=== PATIENT | male | born 1985 | race Caucasian/White ===

== ENCOUNTER 2022-06-17 07:00 | Outpatient (NON) | payer OTHER, SELFPAY | END 2022-06-17 07:01 | disposition home or self-care (01) | PROVIDERS: PCP Internal Medicine Gastroenterology; Visit Provider Internal Medicine Gastroenterology | DX: Z86.010 Personal history of colon polyps (principal) | CPT/HCPCS: 88305 ==

== ENCOUNTER 2022-06-17 08:10 | Day surgery (SDC) | payer OTHER, SELFPAY ==
[2022-06-10 15:10] VITALS: BMI 30.8
[2022-06-17 08:43] VITALS: BP 128/87; PULSE 98; RESP 18; TEMP 37.1; O2SAT 99; BMI 32.1
[2022-06-17] MEDS: LACTATED RINGERS 1,000 ML 150 ML IV CONT (08:50)
--- NOTE | 2022-06-17 09:03 | WPDANESEPPF ---
Anes - Initial Pre Proc Eval Procedure: Operation Date: 06/17/22 10:00 Proposed Procedures p Screening Colonoscopy - Jani Ramirez MD Date/Time: 06/17/22 09:03 Surgeon: Jani Ramirez MD Pre Op Diagnosis: History of Polyps Patient Data Age: 37 Gender: M Height: 1.88 m Weight: 113.4 kg Last Vital Signs Temp 37.1 C 06/17/22 08:43 Pulse 98 06/17/22 08:43 Resp 18 06/17/22 08:43 BP 128/87 06/17/22 08:43 Pulse Ox 99 06/17/22 08:43 O2 Del Method Room Air 06/17/22 08:43 Allergies Allergy/AdvReac Type Severity Reaction Status Date / Time Penicillins Allergy Rash Verified 06/17/22 08:38 Home Medications Medication Instructions Recorded Confirmed Type sodium,potassium,mag sulfates 17.5 See Rx Instructions PO .COMPLEX 05/21/22 06/10/22 Rx gram-3.13 gram-1.6 gram oral soln #354 mL (Suprep Bowel Prep Kit) M.V.I. Adult 1 tab-cap PO DAILY 06/10/22 06/10/22 History Zyrtec 20 mg PO DAILY 06/10/22 06/10/22 History albuterol 2 puff inhalation PRN 06/10/22 06/10/22 History fluticasone propionate 44 44 mcg inhalation BID 06/10/22 06/10/22 History mcg/actuation HFA aerosol inhaler (Flovent HFA) irbesartan 150 150 tablet PO DAILY 06/10/22 06/10/22 History mg-hydrochlorothiazide 12.5 mg tablet Patient hx anesthesia problems: none Family hx anesthesia problems: none Results Review: All pre-operative results and documents have been reviewed as part of the pre-operative evaluation. [facility] Past Medical History Medical History HTN (hypertension) Obesity Smoker Surgical History Surgical History (Updated 06/17/22 @ 09:06 by Jeffrey Cardona MD) H/O colonoscopy Social History Social History Smoking packs per day: 1 Smoking cigarettes per day: 20.0 Years smoked: 20 Smoking pack-years: 20.00 Smoking status: Current every day smoker Alcohol intake: current Alcohol use details: 3-5 drinks per day Living arrangements: with family Timbo Kaufman Final PreProcedure Day of Procedure 06/17/22 09:03 Patient weight: obese Heart: regular rate and rhythm Lungs: clear to auscultation Airway: Mallampati scale class II Neurological: alert and oriented Last oral intake: >/= 8 hours ASA classification: III Emergent: no Anesthetic plan: proceed Anesthesia type and monitoring: general GIVS and standard monitoring Results Review: All pre-operative results and documents have been reviewed as part of the pre-operative evaluation. Informed Consent: The patient's anesthetic plan and its attendant risks and benefits were discussed with the patient/family/POA. Questions were solicited and answers provided to the satisfaction of the patient/family/POA.
--- NOTE | 2022-06-17 09:13 | PM.HPGS ---
History of Present Illness History of Present Illness Consent: Risks, benefits, and alternatives have been discussed and questions answered. Patient agrees to proceed with procedure. Chief complaint: History of Polyps Narrative: Terry Luis is a 37 year old male Presents for screening colonoscopy. Patient has a history of colon polyps identified by previous colonoscopy in 2018. Patient currently reports that he has bright red blood per rectum that occurs intermittently. Sometimes rather heavily. This been going on for several years. Patient denies abdominal pain. He reports that his bowel habits or fairly normal. He family history is noncontributory. Review of Systems Review of Systems: Review of systems noncontributory. [facility] Past Medical History Medical History HTN (hypertension) Obesity Smoker Surgical History Surgical History (Updated 06/17/22 @ 09:06 by Jeffrey Cardona MD) H/O colonoscopy Social History Social History Smoking packs per day: 1 Smoking cigarettes per day: 20.0 Years smoked: 20 Smoking pack-years: 20.00 Smoking status: Current every day smoker Alcohol intake: current Alcohol use details: 3-5 drinks per day Living arrangements: with family Meds Home Medications and Allergies Home Medications Medication Instructions Recorded Confirmed Type sodium,potassium,mag sulfates 17.5 See Rx Instructions PO .COMPLEX 05/21/22 06/10/22 Rx gram-3.13 gram-1.6 gram oral soln #354 mL (Suprep Bowel Prep Kit) M.V.I. Adult 1 tab-cap PO DAILY 06/10/22 06/10/22 History Zyrtec 20 mg PO DAILY 06/10/22 06/10/22 History albuterol 2 puff inhalation PRN 06/10/22 06/10/22 History fluticasone propionate 44 44 mcg inhalation BID 06/10/22 06/10/22 History mcg/actuation HFA aerosol inhaler (Flovent HFA) irbesartan 150 150 tablet PO DAILY 06/10/22 06/10/22 History mg-hydrochlorothiazide 12.5 mg tablet Allergies Allergy/AdvReac Type Severity Reaction Status Date / Time Penicillins Allergy Rash Verified 06/17/22 08:38 Vital Signs Vital Signs - 24 hr 06/17/22 08:43 Temperature 98.7 F Pulse Rate 98 Respiratory Rate 18 Blood Pressure 128/87 Pulse Oximetry 99 Oxygen Delivery Room Air Exam Narrative: Physical exam reveals patient be alert. Vital signs stable. HEENT exam is unremarkable. Patient is anicteric. Lungs are clear to auscultation and percussion. Heart is without murmur or extra sounds. Abdomen bowel sounds are present soft nontender with no organomegaly. Digital external rectal exam is normal. Assessment and Plan Assessment and plan (1) History of colon polyps: Code(s): Z86.010 - Personal history of colonic polyps Status: Acute Assessment and Plan: Patient has a history of colon polyps removed from the colon 2017. Patient should presents today for screening colonoscopy. Further recommendations may be given after endoscopy. (2) Rectal bleeding: Code(s): K62.5 - Hemorrhage of anus and rectum Status: Acute Assessment and Plan: Patient notes intermittent bright red blood per rectum. plan for this to be evaluated time colonoscopy. High fiber supplementation may be beneficial. Further recommendations may be given after endoscopy.
[2022-06-17 10:36] VITALS: BP 128/74; PULSE 98; RESP 16; O2SAT 100
[2022-06-17 10:46] VITALS: BP 128/74; PULSE 103; RESP 16; O2SAT 100
[2022-06-17 10:56] VITALS: BP 126/81; PULSE 94; RESP 16; O2SAT 99
--- NOTE | 2022-06-17 10:58 | WPDANESPN ---
Anes - Prog Note Post-Op Date/Time: 06/17/22 10:58 Cardiovascular status: normal Respiratory status: normal Airway patency: baseline Mental status: baseline Post-Op hydration status: normal Vital Signs: Last Vital Signs Temp 37.1 C 06/17/22 08:43 Pulse 103 H 06/17/22 10:46 Resp 16 06/17/22 10:46 BP 128/74 06/17/22 10:46 Pulse Ox 100 06/17/22 10:46 O2 Del Method Room Air 06/17/22 10:46 Pain Score (VAS): 0/10 I/O: Intake & Output 06/16/22 06/17/22 06/17/22 23:59 07:59 15:59 Intake Total 500 Balance 500 Patient Feedback: Patient satisfied with anesthetic care.
--- NOTE | 2022-06-17 11:15 | SUR.PHASEII ---
PT AWAKE AND ALERT. DRESSED. DRINKING SODA. DENIES PAIN. WAITING FOR RIDE. MESSAGE WAS LEFT FOR SPOUSE, NO ANSWER.
--- NOTE | 2022-06-17 11:22 | SUR.PHASEII ---
CALLED SPOUSE AGAIN, SHE ANSWERED THE PHONE THIS TIME. STATES SHE WILL BE HERE IN 25 MINUTES. PT NOTIFIED.
--- NOTE | 2022-06-17 11:33 | SUR.PHASEII ---
PT DRESSED AND SITTING ON STRETCHER. SNACKING. DENIES PAIN. AWAKE AND ALERT. WAITING FOR RIDE.
== END 2022-06-17 12:01 | disposition home or self-care (01) ==
PROVIDERS: PCP Family Medicine Sports Medicine; Visit Provider Internal Medicine Gastroenterology
PROC: 0DJD8ZZ Inspection of Lower Intestinal Tract, Via Natural or Artificial Opening Endoscopic (ICD-10-PCS; CPT 45378; principal; 2022-06-17 10:00)
DX: Z86.010 Personal history of colon polyps (principal)
CPT/HCPCS: 45385

== ENCOUNTER 2022-10-16 08:01 | Outpatient (CLI) | payer OTHER, SELFPAY ==
--- NOTE | ~2022-10-16 | XR_ITS ---
EXAMINATION: XR_ENEMABAC_CR DATE: 10/16/2022 09:52 INDICATION: Colon polyps with recent limited colonoscopy TECHNIQUE: A document review attorney radiograph was obtained. A catheter was inserted into the patient's rectum. Contra st was infused by gravity. Gas was infused by hand pump. A total of 54 fluoroscopic spot images and 2 4 conventional radiographs were obtained. Fluoroscopy exposure time was 2.8 minutes. Total DAP was 23 5.03 Gycm^2. COMPARISON: None. FINDINGS: The sigmoid and descending colon are both redundant and tortuous. This results in retention of a grea ter than optimal amount of oral contrast material which mildly limits evaluation. There is 1 cm polyp with smooth margins in the distal transverse colon located a short distance from the splenic flexure . There are 3 subcentimeter diverticula along the sigmoid colon. No other polyps identified. No other mucosal irregularities or strictures. Small amount of contrast reflux into the appendix and distal m ost small bowel. IMPRESSION: 1. Single 1 cm polyp at the distal transverse colon. 2. 3 small diverticula along the sigmoid colon. Reviewed, dictated and finalized at location A.
== END 2022-10-16 08:02 | disposition home or self-care (01) ==
PROVIDERS: PCP Family Medicine Sports Medicine; Visit Provider Internal Medicine Gastroenterology
DX: D12.3 Benign neoplasm of transverse colon (principal); K57.30 Diverticulosis of large intestine without perforation or abscess without bleeding
CPT/HCPCS: 74280

== ENCOUNTER 2023-11-20 07:35 | Day surgery (SDC) | payer OTHER, SELFPAY ==
[2023-10-20 09:50] VITALS: BMI 32.1
--- NOTE | 2023-11-19 14:54 | P.PNAN_ITS ---
Anes - Initial Pre Proc Eval Procedure: Operation Date: 11/20/23 10:00 Proposed Procedures p Diagnostic Colonoscopy - Jani Ramirez MD Date/Time: 11/19/23 14:54 Surgeon: Jani Ramirez MD Pre Op Diagnosis: Personal History of Polyps Patient Data Age: 38 Gender: M Height: 1.88 m Weight: 113.398 kg Allergies Allergy/AdvReac Type Severity Reaction Status Date / Time Penicillins Allergy Rash Verified 11/20/23 08:20 Home Medications Medication Instructions Recorded Confirmed Type M.V.I. Adult 1 tab-cap PO DAILY 06/10/22 11/20/23 History Zyrtec 20 mg PO DAILY 06/10/22 11/20/23 History albuterol 2 puff inhalation PRN 06/10/22 11/20/23 History irbesartan 150 150 tablet PO DAILY 06/10/22 11/20/23 History mg-hydrochlorothiazide 12.5 mg tablet omalizumab 150 mg/mL subcutaneous mg subcut 10/22/23 History syringe (Xolair) Patient hx anesthesia problems: none Family hx anesthesia problems: none Results Review: All pre-operative results and documents have been reviewed as part of the pre- operative evaluation. [facility] Past Medical History Medical History Asthma Diverticulosis HTN (hypertension) Obesity Smoker Surgical History Surgical History (Updated 06/17/22 @ 09:06 by Jeffrey Cardona MD) H/O colonoscopy Social History Social History Smoking packs per day: 0.5 Smoking cigarettes per day: 10.0 Years smoked: 20 Smoking pack-years: 10.00 Smoking status: Current every day smoker Alcohol intake: current Drinks per week: 15 Alcohol use details: 3-5 drinks per day Substance use type: does not use Living arrangements: with family Anes - Eval Final PreProcedure Day of Procedure 11/19/23 14:54 Patient weight: obese Heart: regular rate and rhythm Lungs: clear to auscultation Airway: Mallampati scale class II Neurological: alert and oriented Last oral intake: >/= 8 hours ASA classification: III Emergent: no Anesthetic plan: proceed Anesthesia type and monitoring: general GIVS and standard monitoring Results Review: All pre-operative results and documents have been reviewed as part of the pre- operative evaluation. Informed Consent: The patient's anesthetic plan and its attendant risks and benefits were d iscussed with the patient/family/POA. Questions were solicited and answers provided to the satisfaction of the patient/family/POA.
[2023-11-20 08:22] VITALS: BP 159/96; PULSE 83; RESP 12; TEMP 37.2; O2SAT 100
[2023-11-20] MEDS: LACTATED RINGERS 1,000 ML 150 ML IV CONT (08:46)
--- NOTE | 2023-11-20 09:10 | PM.HPGS ---
History of Present Illness History of Present Illness Consent: Risks, benefits, and alternatives have been discussed and questions answered. Patient agrees to proceed with procedure. Chief complaint: Personal History of Polyps Narrative: Terry Luis is a 38 year old male presents for follow-up colonoscopy. Patient has had intermittent rectal bleeding attributed to hemorrhoids. Colonoscopy performed in May 2022 revealed several very large colon polyps. The proximal colon was not a thoroughly a barium enema was requested. This eventually was performed in September which revealed suggestion of a 1cm polyp in the distal transverse colon. Patient presents today for follow-up colonoscopy to more thoroughly evaluate the proximal colon but also to be certain that no additional polyps remain. Patient reports he continues to have rectal bleeding attributed to hemorrhoids. His weight has remained stable. All previous polyps were found to be benign adenomas. Review of Systems Review of Systems: All systems reviewed & are unremarkable except as noted in HPI and below PMFSH Past Medical History Medical History Asthma Diverticulosis HTN (hypertension) Obesity Smoker Surgical History Surgical History (Updated 06/17/22 @ 09:06 by Jeffrey Cardona MD) H/O colonoscopy Social History Social History Smoking packs per day: 0.5 Smoking cigarettes per day: 10.0 Years smoked: 20 Smoking pack-years: 10.00 Smoking status: Current every day smoker Alcohol intake: current Drinks per week: 15 Alcohol use details: 3-5 drinks per day Substance use type: does not use Living arrangements: with family Meds Home Medications and Allergies Home Medications Medication Instructions Recorded Confirmed Type M.V.I. Adult 1 tab-cap PO DAILY 06/10/22 11/20/23 History Zyrtec 20 mg PO DAILY 06/10/22 11/20/23 History albuterol 2 puff inhalation PRN 06/10/22 11/20/23 History irbesartan 150 150 tablet PO DAILY 06/10/22 11/20/23 History mg-hydrochlorothiazide 12.5 mg tablet omalizumab 150 mg/mL subcutaneous mg subcut 10/22/23 History syringe (Xolair) Allergies Allergy/AdvReac Type Severity Reaction Status Date / Time Penicillins Allergy Rash Verified 11/20/23 08:20 Vital Signs Vital Signs - 24 hr 11/20/23 08:22 Temperature 98.9 F Pulse Rate 83 Respiratory Rate 12 Blood Pressure 159/96 H Pulse Oximetry 100 Oxygen Delivery Room Air Exam Narrative: Physical exam reveals patient to be alert. Signs stable. HEENT exam is unremarkable. Patient is anicteric. Lungs are clear to auscultation and percussion. Heart is without murmur or extra sounds. Abdomen bowel sounds are present soft nontender with no hepatosplenomegaly. Digital and external rectal exam is normal. Assessment and Plan Assessment and plan (1) History of colon polyps: Code(s): Z86.010 - Personal history of colonic polyps Status: Acute Assessment and Plan: Patient with multiple colon polyps some of which were very large in recent exam. Follow-up barium enema suggests residual polyp in the transverse colon follow-up colonoscopy to be performed today excision of all colon polyps. High-fiber diet is advised. Continued follow-up at intervals is advised subsequently. (2) Rectal bleeding: Code(s): K62.5 - Hemorrhage of anus and rectum Status: Acute Assessment and Plan: Patient with rectal bleeding attributed to internal hemorrhoids. Patient will need surgical referral for more definitive therapy.
[2023-11-20 10:44] VITALS: BP 126/85; PULSE 92; RESP 14; O2SAT 100
[2023-11-20 10:54] VITALS: BP 129/89; PULSE 84; RESP 16; O2SAT 100
[2023-11-20 11:04] VITALS: BP 124/88; PULSE 80; RESP 16; O2SAT 100
--- NOTE | 2023-11-20 11:15 | SUR.PHASEII ---
d/c delayed d/t waiting for ride
--- NOTE | 2023-11-20 14:11 | WPDANESPN ---
Anes - Prog Note Post-Op Date/Time: 11/20/23 14:11 Cardiovascular status: normal Respiratory status: normal Airway patency: baseline Mental status: baseline Post-Op hydration status: normal Vital Signs: Last Vital Signs Temp 37.2 C 11/20/23 08:22 Pulse 80 11/20/23 11:04 Resp 16 11/20/23 11:04 BP 124/88 11/20/23 11:04 Pulse Ox 100 11/20/23 11:04 O2 Del Method Room Air 11/20/23 11:04 Pain Score (VAS): 0 I/O: Intake & Output 11/19/23 11/20/23 11/20/23 23:59 07:59 15:59 Intake Total 750 Balance 750 Post-procedural complaints: none Patient Feedback: Patient satisfied with anesthetic care. Other Findings: Patient vital signs back to baseline. Patient denies nausea and vomiting. Patient's pain under control. Patient OK for discharge.
== END 2023-11-20 11:29 | disposition home or self-care (01) ==
PROVIDERS: PCP Family Medicine; Visit Provider Internal Medicine Gastroenterology
PROC: 0DJD8ZZ Inspection of Lower Intestinal Tract, Via Natural or Artificial Opening Endoscopic (ICD-10-PCS; CPT 45378; principal; 2023-11-20 10:00)
DX: Z86.010 Personal history of colon polyps (principal); K57.30 Diverticulosis of large intestine without perforation or abscess without bleeding; K64.8 Other hemorrhoids
CPT/HCPCS: 45378